=== PATIENT | male | born 1970 | race African-American/Black ===

== ENCOUNTER 2016-06-23 20:23 | Emergency (ER) | payer SELFPAY ==
[~2016-06-23] VITALS: Ht 177.8 cm; Wt 54.4 kg
[~2016-06-23 20:23] MED LIST: PANT40TA5 PO
--- NOTE | 2016-06-23 22:38 | PHYS DOC ---
Past Medical History Past Medical History: No Pertinent History, Other Past Surgical History: No Surgical History, Other Alcohol Use: Heavy Drug Use: None Adult General Chief Complaint Chief Complaint: SORE THROAT HPI HPI Patient is a 46 year old male who presents with his mother for evaluation of illness over the past 2 weeks. He states he has a dry, nagging cough that is worse at night for the past 2 weeks. He also has nasal congestion, and rhinorrhea that are currently improving. States he initially had some sore throat, but this has resolved. He has tried Mucinex D recently which has caused some palpitations without symptomatic improvement, so he stopped this. He denies chest pain, dyspnea, abdominal pain, nausea or vomiting, fever or chills , myalgia, diarrhea, dysuria. Review of Systems Review of Systems Constitutional: Denies fever or chills [] Eyes: Denies change in visual acuity, redness, or eye pain [] HENT: Denies nasal congestion [] Respiratory: Denies shortness of breath [] Cardiovascular: No additional information not addressed in HPI [] GI: Denies abdominal pain, nausea, vomiting, bloody stools or diarrhea [] : Denies dysuria or hematuria [] Musculoskeletal: Denies back pain or joint pain [] Integument: Denies rash or skin lesions [] Neurologic: Denies headache, focal weakness or sensory changes [] Endocrine: Denies polyuria or polydipsia [] Allergies Allergies Allergies Coded Allergies Type Severity Reaction Last Updated Verified No Known Drug Allergies 09/25/14 No Physical Exam Physical Exam Constitutional: Well developed, well nourished, no acute distress, non-toxic appearance. [] HENT: Normocephalic, atraumatic, bilateral external ears normal, oropharynx moist, no oral exudates, nose normal. [] Eyes: PERRLA, EOMI, conjunctiva normal, no discharge. [] Neck: Normal range of motion, no tenderness, supple, no stridor. [] Cardiovascular:Heart rate regular rhythm [] Lungs & Thorax: Bilateral breath sounds clear to auscultation [] Abdomen: Bowel sounds normal, soft, no tenderness. [] Skin: Warm, dry, no erythema, no rash. [] Back: Normal range of motion. [] Extremities: No tenderness, ROM intact, no edema, no palpable cord. [] Neurologic: Alert and oriented X 3, normal motor function, normal sensory function, no focal deficits noted. [] Psychologic: Affect normal, judgement normal, mood normal. [] Current Patient Data Vital Signs Vital Signs Date Time Temp Pulse Resp B/P Pulse Ox O2 Delivery O2 Flow Rate FiO2 06/23/16 22:40 117 18 111/70 98 Room Air 06/23/16 20:46 98.1 98.1 Course & Med Decision Making Course & Med Decision Making Pertinent Labs and Imaging studies reviewed. (See chart for details) Offered chest x-ray to rule out pneumonia, however have low clinical suspicion; patient declined. Discussed symptomatic care for likely viral upper respiratory infection. He has no coughing during entirety of the exam. Return precautions given. He and mother understand and agree with plan. Dragon Disclaimer Dragon Disclaimer This electronic medical record was generated, in whole or in part, using a voice recognition dictation system. Departure Departure Impression: Primary Impression: Upper respiratory infection, viral Disposition: HOME, SELF-CARE Condition: STABLE Referrals: NO PCP (PCP) Patient Instructions: Upper Respiratory Infection, Adult, [id number] Additional Instructions: Take honey as needed for cough. Follow-up with your primary care doctor. Return for any concerns. Karan HILTON MD Jun 23, 2016 22:38
[2016-06-23 22:40] VITALS: BP 111/70
[2016-06-24 06:57] LABS: NEGATIVE OBC STREP NEG; POSITIVE OBC STREP POS
== END 2016-06-23 22:45 | disposition home or self-care (01) ==
LOC: ER 20:23
DX: J06.9 Acute upper respiratory infection, unspecified (principal)
CPT/HCPCS: 87070; 87880; 99284